=== PATIENT | male | born 1995 | race Hispanic/Latino ===

== ENCOUNTER 2018-06-01 10:28 | Emergency (ER) | payer OTHER ==
[~2018-06-01] VITALS: Ht 175.3 cm; Wt 93.2 kg
[2018-06-01] MEDS ORDERED: BENA25CA4 PO (10:36)
[2018-06-01] MEDS ORDERED: ZYRTTAB8 PO (10:36)
[2018-06-01 11:18] VITALS: BP 135/70
[2018-06-01] MEDS ORDERED: CLAR10CA3 PO (11:32)
[2018-06-01] MEDS ORDERED: [UNRECOGNIZED DRUG - CODE] TOP (11:32)
[2018-06-01] MEDS ORDERED: NAPR-837 PO (11:32)
[2018-06-01] MEDS ORDERED: NAPROXEN 250 MG TAB PO ONE (11:45)
[2018-06-01] MEDS ORDERED: LORATADINE 10 MG TAB PO ONE (11:45)
[2018-06-01] MEDS ORDERED: HYDROCORTISONE 1% CREAM 30 GM TOP ONE (11:45)
== END 2018-06-01 12:45 | disposition home or self-care (01) ==
LOC: M ED 10:28
DX: R21 Rash and other nonspecific skin eruption (principal); Z79.899 Other long term (current) drug therapy

== ENCOUNTER 2018-07-18 15:19 | Emergency (ER) | payer OTHER ==
[~2018-07-18] VITALS: Ht 177.8 cm; Wt 100.0 kg
[~2018-07-18 15:19] MED LIST: BENA25CA4 PO; CLAR10CA3 PO; NAPR-837 PO; ZYRTTAB8 PO; [UNRECOGNIZED DRUG - CODE] TOP
[2018-07-18] MEDS ORDERED: LIDOCAINE 2% MDV 20 ML VIAL SC ONE (16:00)
[2018-07-18] MEDS ORDERED: IBUPROFEN 800 MG TAB PO ONE (17:15)
[2018-07-18] MEDS ORDERED: CORTISPORIN OPHTH OINT 3.5 GM ONE (17:15)
[2018-07-18] MEDS ORDERED: NEOSPORIN OINT 0.9 GM PKT (FLOOR STOCK) As Ordered ONE (17:20)
[2018-07-18 17:29] VITALS: BP 121/63
[2018-07-18] MEDS ORDERED: NEOSPORIN OINT 0.9 GM PKT (FLOOR STOCK) TOP ONE (17:30)
--- NOTE | 2018-07-19 07:32 | REP ---
RIGHT FOOT, FOUR VIEWS: HISTORY: Possible foreign body. There is no acute fracture or dislocation. The joint spaces are normal in appearance. There is no radiopaque foreign body. IMPRESSION:There is no radiopaque foreign body. Electronically Signed by Avelino Atkins MD 07/19/2018 07:18 A
== END 2018-07-18 17:32 | disposition home or self-care (01) ==
LOC: M ED 15:19
DX: S91.114A Laceration without foreign body of right lesser toe(s) without damage to nail, initial encounter (principal); S90.811A Abrasion, right foot, initial encounter; W01.10XA Fall on same level from slipping, tripping and stumbling with subsequent striking against unspecified object, initial encounter; Y92.099 Unspecified place in other non-institutional residence as the place of occurrence of the external cause; Y93.9 Activity, unspecified; Y99.9 Unspecified external cause status; Z72.0 Tobacco use; Z79.899 Other long term (current) drug therapy